=== PATIENT | male | born 1935 | race Caucasian/White ===

== ENCOUNTER 2017-05-28 06:17 | Day surgery (SDC) | payer OTHER ==
[~2017-05-28 06:17] MED LIST: FEROSUL325 ( 65 ); FOLIC ACID1 MG; HUMALOG100 UNIT/1; HYDRODIURIL12.5 MG; HYDRODIURIL12.5 MG PO; INTEGRA PLUS C1 EACH PO; ISOSORBIDE DINI30 MG; ISOSORBIDE DINI30 MG PO; KEPPRA500 MG; KEPPRA500 MG PO; LASIX20 MG PO; LIPITOR40 MG; LIPITOR40 MG PO; LOSARTAN-HCTZ1 EAC2 PO; OMEPRAZOLE20 M1; OMEPRAZOLE20 M1 PO; PNEU16DI2; TAMS0.4C
[2017-05-28] MEDS ORDERED: URIN D.S. TABL1 EACH PO (12:39)
[2017-05-28] MEDS ORDERED: KEFLEX500 MG PO (12:39)
== END 2017-05-28 14:25 | disposition home or self-care (01) ==
LOC: CIR.AMB 06:17
DX: N35.8 Other urethral stricture (principal); N40.1 Benign prostatic hyperplasia with lower urinary tract symptoms; R33.8 Other retention of urine; N34.2 Other urethritis